=== PATIENT | male | born 1945 | race Caucasian/White ===

== ENCOUNTER → 2018-08-28 | Outpatient (CLI) | payer OTHER ==
[~2018-08-28] MED LIST: ACAI BERRY500 MG PO; ALPHA LIPOIC A100 MG PO; ALPHA LIPOIC AC50 M1; APAP500 PO; CAL-MAG-ZINC T1 EACH PO; CALCIUM-MAG-ZI1 EACH PO; CELADRIN PO; CELEBREX 200 M200 MG PO; CO Q-10100 MG PO; COD LIVER OIL1 EAC4 PO; COZAAR 25 MG TA25 M2 PO; EDTA PO; FLAX OIL1000 MG PO; FLAX SEED OIL1000 MG; GLUCOSAMINE &1 EAC1 PO; GLUCOSAMINE &1 EACH PO; LISINOPRIL20 MG PO; MULTIVITAMINS PO; OMEGA-3 FISH O1 EAC5 PO; SIMVASTATIN40 MG PO; VITAMIN D31000 UNI2 PO; VITAMIN E400 UNIT PO; [UNRECOGNIZED DRUG - OTHER] PO; [UNRECOGNIZED DRUG - OTHER] PO
== END ==
LOC: M.LAB 04:42
DX: E87.6 Hypokalemia (principal)

== ENCOUNTER 2021-04-30 20:01 | Emergency (ER) | payer OTHER ==
[~2021-04-30] VITALS: Ht 175.3 cm; Wt 88.9 kg
[2021-04-30 22:34] VITALS: BP 131/81
== END 2021-04-30 22:34 | disposition home or self-care (01) ==
LOC: M.ERS 20:01
DX: S81.811A Laceration without foreign body, right lower leg, initial encounter (principal); I10 Essential (primary) hypertension; Z98.890 Other specified postprocedural states; Z96.651 Presence of right artificial knee joint; Z85.46 Personal history of malignant neoplasm of prostate; Z79.899 Other long term (current) drug therapy; W01.198A Fall on same level from slipping, tripping and stumbling with subsequent striking against other object, initial encounter; Y93.89 Activity, other specified; Y92.89 Other specified places as the place of occurrence of the external cause; Y99.8 Other external cause status